=== PATIENT | male | born 1970 | race Caucasian/White ===

== ENCOUNTER → 2018-12-19 07:40 | Outpatient (CLI) | payer OTHER, SELFPAY ==
--- NOTE | 2018-12-19 | DI.MRI.S_ITS ---
PROCEDURE: MR KNEE RT WO CON INDICATIONS: PAIN AND SWELLING OF RIGHT KNEE TECHNIQUE: Noncontrast sagittal PD fast spin echo and T2 fast spin echo with fat saturation, sagittal 3-D FLASH with fat saturation; coronal T1 spin echo and PD fast spin echo with fat saturation, and axial PD fast spin echo with fat saturation through the knee. COMPARISON: None. FINDINGS: Image quality: Excellent. Menisci: There is intrasubstance degeneration in the posterior horn of the medial meniscus. The lateral meniscus demonstrates normal morphology and internal signal. The meniscal root ligaments appear intact. Cruciate ligaments: There is chronic partial tear with scarring or mucoid degeneration in the distal anterior cruciate ligament. The posterior cruciate ligament appears intact. Medial structures: The medial collateral ligament appears intact. The semimembranosus tendon insertions appear intact. Visualized portions of the pes anserinus tendons appear normal. No abnormal bursal fluid. Lateral structures: The lateral collateral ligament and the biceps femoris tendon are intact. The popliteus tendon appears normal; the popliteofibular ligament appears intact. The iliotibial band appears normal. A 1.2 x 2.0 x 5.1 cm focus and is seen this is new the lateral patellar retinaculum. Anterior structures: The quadriceps and patellar tendons appear intact. Patellar alignment is normal. No femoral trochlear dysplasia or ventral trochlear prominence. No edema in the infrapatellar fat pad. There is prepatellar bursal fluid consistent with ascites. Bones and cartilage: No bone marrow contusions or fractures. There is an osteochondral defect in the medial femoral condyle. A 5 x 13 mm intra-articular body is present within the anterior intercondylar notch. There is [id number] cartilage thinning of the medial femorotibial compartment. Subchondral edema is present in the medial femorotibial compartment. Joint space: There is moderate to large knee joint effusion. A moderate-sized Bautista's cyst is present. Normal appearing synovial plicae are incidentally noted. IMPRESSION: 1. There is an osteochondral defect in the medial femoral condyle and a 5 x 13 mm intra-articular body within the knee joint, likely sequelae of old osteochondral injury. 2. Suspect chronic partial tear/scarring or mucoid degeneration in the distal ACL. 3. Prepatellar bursitis. 4. A 1.2 x 2.0 x 5.1 cm fluid collection is seen adjacent to the lateral patellar retinaculum, most likely a ganglion cyst or synovial cyst. 5. Moderate-sized Bautista cyst. 6. Moderate to large knee joint effusion. 7. [id number] cartilage thinning of the medial femorotibial compartment. Dictated by: Erika Ruby M.D. on 12/19/2018 at 9:46 Transcribed by: JOSE on 12/19/2018 at 15:40 Approved by: Erika Ruby M.D. on 12/19/2018 at 18:47
== END ==
PROVIDERS: PCP Family Medicine; Visit Provider Family Medicine
DX: M25.561 Pain in right knee (principal); M71.21 Synovial cyst of popliteal space [Baker], right knee; M25.461 Effusion, right knee; M71.561 Other bursitis, not elsewhere classified, right knee; M23.41 Loose body in knee, right knee
CPT/HCPCS: 73721